=== PATIENT | female | born 1965 | race Caucasian/White ===

== ENCOUNTER 2024-05-22 11:16 | Outpatient (AMB) | payer OTHER, SELFPAY ==
--- NOTE | 2024-05-22 11:30 | MHC.PC.OV ---
Vital Signs 05/22/24 11:48 Height 5 ft 6 in Weight 214 lb BMI 34.5 BP 126/70 Blood Pressure Location Lt brachial Position Sitting Respiration 12 Pulse 68 Pulse Source Pulse Oximeter Pulse Oximetry (%) 95 Oxygen Delivery Method Room Air Intake Visit Reasons: transfer from [facility] Migration Specialist Required: No Accompanied by: Self / Same As Patient Allergies sulfamethoxazole [From Bactrim] Allergy (Severe, Verified 05/22/24 11:33) Hives trimethoprim [From Bactrim] Allergy (Severe, Verified 05/22/24 11:33) Hives Tobacco use date assessed: 05/22/24 Dental Screening Dental Screen Date: 05/22/24 Did you have a dental visit in the last 12 months?: Yes Did you have a dental problem in the last 6 months where you did not have access to dental care?: No Was dental information given to patient?: Patient has dentist HPI HPI Comments History of Present Illness Details 58 year old female with a past medical history of sCHF, CAD s/p PCI 2017, Medtronic AICD/pacemaker, hypertension, hld, tobacco use disorder, emphysema, diverticulitis, chronic neck pain presenting for follow up CV: On coreg, entresto, lipitor, asa. Follows with cardiology, Dr Ramesh. She follows regularly. Denies chest pain, dizziness, increase LE edema. Prediabetes-Last A1C 6.1% Chronic pain: On chronic opioid therapy for neck pain-Percocet 10mg QID qt 11 COPD: On singulair and claritin for allergies, rescue inhaler. LDCT ordered before leaving [facility]. She has this scheduled Colonoscopy UTD Mammo UTD ROS CONSTITUTIONAL: Denies weight loss, fever and chills. HEENT: Denies changes in vision and hearing. RESPIRATORY: Denies SOB and cough. CV: Denies palpitations and CP GI: Denies abdominal pain, nausea, vomiting and diarrhea. : Denies dysuria and urinary frequency. MSK: Denies new myalgia and joint pain. SKIN: Denies rash and pruritus. NEUROLOGICAL: Denies headache PSYCHIATRIC: Denies recent changes in mood. PHYSICAL EXAM: GENERAL: Alert and oriented x 3. NAD EYES: EOMI. Anicteric. HENT: Moist mucous membranes. No scleral icterus. No cervical lymphadenopathy. LUNGS: Clear to auscultation bilaterally. CARDIOVASCULAR: Regular rate and rhythm. No murmur. No JVD. ABDOMEN: Soft, non-tender +bs EXTREMITIES: No edema. Non-tender. SKIN: No rashes or lesions. Warm. NEUROLOGIC: No focal neurological deficits. CN II-XII grossly intact PSYCHIATRIC: Cooperative. Appropriate mood and affect [facility] Medical History (Updated 06/25/24 @ 10:43 by Kecia Fay MD) Defibrillator discharge History of mammogram Osteoarthritis Hypertension Emphysema/COPD COPD (chronic obstructive pulmonary disease) CAD (coronary artery disease) Anxiety Surgical History (Updated 05/22/24 @ 12:17 by Radha Huber CMA) History of tonsillectomy and adenoidectomy History of heart artery stent History of colonoscopy History of endoscopy Family History (Updated 05/22/24 @ 12:18 by Radha Huber CMA) Mother Diabetes Heart disease Myocardial infarct Osteoporosis Skin cancer Father Malignant lymphoma, Hodgkin's type Social History (Updated 05/22/24 @ 11:40 by Radha Huber CMA) Household Members: Spouse and Children Housing: House Are you a primary student career development specialist to a significant other at home: No Do you presently have visiting nurse or other home services: No Alcohol intake: current Alcohol intake frequency: holidays/special occasions only Patient Tobacco Use Status: Current everyday Tobacco user Tobacco use type: Cigarette Cigarette Packs Per Day: 1 Cigarettes Per Day: 15 Years Smoked: 30 e-Cigarette/Vaping Use: Never Used service: No Current occupational status: employed 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 1. Little interest or pleasure in doing things: not at all 2. Feeling down, depressed, or hopeless: not at all 3. Trouble falling or staying asleep, or sleeping too much: several days 4. Feeling tired or having little energy: several days 5. Poor appetite or overeating: not at all 6. Feeling bad about yourself - or that you are a failure or have let yourself or your family down: not at all 7. Trouble concentrating on things, such as reading the newspaper or watching television: not at all 8. Moving or speaking so slowly that other people could have noticed. Or the opposite - being so fidgety or restless that you have been moving around a lot more than usual: not at all 9. Thoughts that you would be better off or of hurting yourself in some way: not at all Total score: 2 Depression Screening Interpretation: Negative Depression Screening Done: Yes 09983 - PHQ-9 Billing: Yes Source: Developed by Drs. Marito Galindo, Alice Cr, Dante Ojeda and colleagues, with an educational jill from [employer] (formerly [employer]). Thrive Questionnaire Date Thrive assessed: 05/19/24 I am a: Patient What is your living situation today?: I have a steady place to live Within the past 12 months, did the food you bought not last and you didn't have the money to get more?: Never true Within the past 12 months, did you worry whether your food would run out before you got money to buy more?: Never true Do you have trouble paying for medicines?: No Do you have trouble getting transportation to medical appointments?: No Do you have trouble paying your heating and electricity bill?: No Do you have trouble taking care of your child, family member or friend?: No Do you have trouble with day-to-day activities such as bathing, preparing meals, shopping, managing finances, etc.?: No Are you currently unemployed and looking for a job?: No Are you interested in more education?: No Please select the resources that you would like help with: None Currently or been in a relationship where the following occur: No concerns reported THRIVE Score: 0 AUDIT C Alcohol Use Questionnaire (AUDIT-C) 1. How often do you have a drink containing alcohol?: Monthly or less 2. How many drinks containing alcohol do you have on a typical day when you are drinking?: 1 or 2 3. How often do you have six or more drinks on one occasion?: Never Total Score: 1 TJ-7 AMB Questionnaire TJ-7 Date TJ - 7 assessed: 05/22/24 Feeling nervous, anxious, or on edge: 0 = Not at all Not being able to stop or control worryin = Several days Worrying too much about different things: 1 = Several days Trouble relaxin = Several days Being so restless that it is hard to sit still: 0 = Not at all Feeling afraid as if something awful might happen: 0 = Not at all Source: Developed by Drs. Marito Galindo, Alice Cr, Dante Ojeda and colleagues, with an educational jill from [employer] (formerly [employer]). TJ-7 Assessment Billing TJ-7 Assessment Tool: TJ-7 Assessment 16232 Physical exam (Primary Care) Vital Signs: Last Vital Signs Pulse 68 05/22/24 11:48 Resp 12 05/22/24 11:48 BP 126/70 05/22/24 11:48 Pulse Ox 95 05/22/24 11:48 Oxygen Delivery Method Room Air 05/22/24 11:48 BMI result Body Mass Index 34.5 Tobacco/Smoking Status: Tobacco use Status Tobacco use date assessed 05/22/24 05/22/24 11:53 Patient Tobacco Use Status Current everyday Tobacco 05/22/24 11:53 Tobacco use type Cigarette 05/22/24 11:53 e-Cigarette/Vaping Use Never Used 05/22/24 11:53 PHQ-9: PHQ-9 Score PHQ-9: Total score 2 06/25/24 10:43 Depression Screening Interpretation: Negative Thrive Assessment: Date of Thrive Assessment Date Thrive assessed 05/19/24 05/22/24 11:31 Currently or been in a relationship where the following occur: No concerns reported Coding Level of Care Code Est Pt Level 4 (04934) Complex EM visit Add On G2211 Diagnoses Chronic obstructive pulmonary disease with acute exacerbation J44.1 COPD type: COPD with acute exacerbation Coronary artery disease involving [place] coronary artery of [place] heart without angina pectoris I25.10 Associated angina: without angina Coronary Disease-Associated Artery/Lesion type: [place] artery [place] vs. transplanted heart: [place] heart Primary hypertension I10 Hypertension type: primary hypertension Other chronic postprocedural pain G89.28 Chronic pain type: other chronic postprocedural pain Additional Codes TJ-7 Assessment Billing - TJ-7 Assessment Tool: TJ-7 Assessment 07493 ([id number])
[2024-05-22 11:48] VITALS: BP 126/70; PULSE 68; RESP 12; O2SAT 95; BMI 34.5
== END 2024-05-22 13:12 | disposition home or self-care (01) ==
PROVIDERS: PCP Internal Medicine; Visit Provider Internal Medicine
DX: J44.1 Chronic obstructive pulmonary disease with (acute) exacerbation (principal); I25.10 Atherosclerotic heart disease of native coronary artery without angina pectoris; I10 Essential (primary) hypertension; G89.28 Other chronic postprocedural pain

== ENCOUNTER → 2024-05-22 11:16 | Outpatient (BNVA) | payer OTHER, SELFPAY | PROVIDERS: PCP Internal Medicine; Visit Provider Internal Medicine | DX: J44.1 Chronic obstructive pulmonary disease with (acute) exacerbation (principal); I25.10 Atherosclerotic heart disease of native coronary artery without angina pectoris; G89.28 Other chronic postprocedural pain; I11.0 Hypertensive heart disease with heart failure; I50.9 Heart failure, unspecified; F17.210 Nicotine dependence, cigarettes, uncomplicated; Z95.0 Presence of cardiac pacemaker | CPT/HCPCS: 96127; 99212 ==

== ENCOUNTER 2024-05-22 13:17 | Outpatient (REF) | payer OTHER, SELFPAY ==
[2024-05-22 15:16] LABS: MANUAL DIFF FLAG NO
[2024-05-22 15:27] LABS: Basophils Percent Auto 0.4 % (0-2); Eosinophils Absolute Auto 0.1 X10*3/uL (0.0-0.4); Eosinophils Percent Auto 1.9 % (0-4); Hematocrit 45.5 % (37.0-47.0); Hemoglobin 15.3 g/dl (12.0-16.0); Imm Gran Abs Auto 0.02 X10*3/uL (0.00-0.03); Imm Gran Pct Auto 0.3 % (0.0-0.4); Lymphocytes Percent Auto 28.9 % (20-40); Mean Corpuscular HGB Conc 33.6 g/dl (31.0-35.0); Mean Corpuscular Hemoglobin 30.9 pg (27.0-33.0); Mean Corpuscular Volume 91.9 fL (80.0-98.0); Mean Platelet Volume 10.5 fL (9.4-12.3); Monocytes Absolute Auto 0.3 X10*3/uL (0.1-1.2); Neutrophils Absolute Auto 4.3 x10*3/uL (2.0-8.3); Neutrophils Percent Auto 63.5 % (45-73); Platelet Count 195 X10*3/uL (160-400); Red Blood Count 4.95 X10*6/uL (4.20-5.50); Red Cell Distribution Width 14.5 % (11.0-16.0); White Blood Count 6.7 X10*3/uL (4.8-10.8)
[2024-05-22 16:16] LABS: Alanine Aminotransferase 16 U/L (0-31); Alkaline Phosphatase 68 U/L (39-117); Anion Gap 13 (12-20); Aspartate Amino Transferase 14 U/L (5-31); Bilirubin Total 0.6 mg/dL (0.0-1.0); Blood Urea Nitrogen 15 mg/dL (9-16); Calcium 9.2 mg/dL (8.4-10.2); Carbon Dioxide 25 mmol/L (22-29); Chloride 107 mmol/L (96-108); Cholesterol 188 mg/dL (<200); Estimated Glomerular Filt Rate > 60; Glucose Random 124 mg/dL (60-115); HDL Cholesterol 51 mg/dL (>40); LDL Cholesterol Calculated 111 mg/dL (<100); Potassium 3.9 mmol/L (3.3-5.1); Sodium 141 mmol/L (135-145); Total Protein 6.8 g/dL (6.5-8.0); Triglycerides 130 mg/dL (<150)
[2024-05-22 16:18] LABS: Estimated Average Glucose 120 mg/dL; Hemoglobin A1C 151.8061 umol/L; Hemoglobin A1c % 5.8 % (<6.0)
[2024-05-22 16:26] LABS: TSH reflex Free T4 0.69 uIU/mL (0.32-4.0)
== END 2024-05-22 13:18 | disposition home or self-care (01) ==
LOC: HO.WFDLDS 13:17
PROVIDERS: Visit Provider Internal Medicine
DX: J44.9 Chronic obstructive pulmonary disease, unspecified (principal); I10 Essential (primary) hypertension; I25.10 Atherosclerotic heart disease of native coronary artery without angina pectoris; Z13.0 Encounter for screening for diseases of the blood and blood-forming organs and certain disorders involving the immune mechanism; Z13.1 Encounter for screening for diabetes mellitus
CPT/HCPCS: 36415; 80053; 80061; 83036; 84443; 85025

== ENCOUNTER 2024-08-14 09:04 | Outpatient (AMB) | payer OTHER, SELFPAY ==
--- OUTSIDE RECORDS SUMMARY | 2024-08-14 09:11 | XMS_ITS | Continuity of Care Document ---
Author Organization [facility] Address [address] [place] [id number]- Care Team Providers Care Clinical Laboratory Technician Name Role Phone Sumeet DELGADO, Kecia Cash Primary Care Physician [phone] [place] [facility] [place]): [place]/24 [facility] [address] [place] [id number] Encounter Type: Triage Allergies, Adverse Reactions, Alerts Substance Criticality Severity Reaction Reaction Severity Status Bactrim hives Active Pollen Active Immunizations Given and Recorded Vaccine Date Status Refusal Reason influenza virus vaccine, inactivated 08/07/23 Ric rded influenza virus vaccine, inactivated 07/31/22 Ric rded influenza virus vaccine, inactivated 05/31/20 Ric rded influenza virus vaccine, inactivated 06/27/19 Ric rded influenza virus vaccine, inactivated 06/28/18 Ric rded influenza virus vaccine, inactivated 09/14/13 Ric rded SARS-CoV-2 (COVID-19) mRNA BNT-162b2 vac 12/11/20 Given SARS-CoV-2 (COVID-19) mRNA BNT-162b2 vac 11/20/20 Given tetanus/diphtheria/pertussis, acel(Tdap) 09/14/13 Recorded Problem List Condition Confirmation Course Effective Dates Status H ealth Status Informant Anxiety Confirmed Active CAD - Coronary artery disease Confirmed Active Tendinitis, calcific, shoulder Confirmed Active Chronic pain Confirmed Active Controlled substance agreement signed Confirmed Active Hypertension Confirmed Active Obese class I Confirmed Active Osteoarthritis Confirmed Active Prediabetes Confirmed Active COPD with emphysema Confirmed Active Right cervical radiculopathy Confirmed Active Smoker Confirmed Active Social History Social History Type Response Smoking Status 10 or more cigarette s (1/2 pack or more)/day in last 30 days; Interested in cessation: Yes; Type: Cigarettes; Tobacco use times per day: 1/2 -1 pack a day; Started at age: 16; entered on: 06/17/23 Sex Sex Representation Female (finding) Patient Care team information Care Team Personnel Name: Chapis Montiel RN Position: [facility] SN RN Member Role: Primary Care Nurse Name: Stephenie Bowles MA Position: [facility] Office Staff Member Role: Lifetime Consulting Physician Name: Gina Araya Position: [facility] Outreach Member Role: Lifetime Consulting Physician Name: Kecia Fay MD Position: Reference Physician Member Role: PCP Address: [address] [place] [address] Telecom: Care Team Related Persons Name: IMMANUEL LIU Name: MARKELL LIU Name: ALEX CHOI Name: [facility] Insurance Providers Guarantor name: COLIN DUENAS Health Plan Information #: 1 Payer: [facility] Member Number: NA Policy Number: NA Group Number: [id number]
--- NOTE | 2024-08-14 09:26 | MHC.PC.OV ---
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 Follows with cardiology, Dr Ramesh. She follows regularly. Denies chest pain, dizziness, increase LE edema. Prediabetes-Last A1C 5.8% Chronic pain: On chronic opioid therapy for neck pain-Percocet 10mg QID qt 11 COPD: On singulair and claritin for allergies, rescue inhaler. LDCT UTD. Increased cough and sinus congestion Colonoscopy UTD Mammo UTD ROS see HPI PHYSICAL EXAM: GENERAL: Alert and oriented x 3. NAD EYES: EOMI. Anicteric. HENT: Moist mucous membranes. No scleral icterus. No cervical lymphadenopathy. LUNGS: Clear to auscultation bilaterally. CARDIOVASCULAR: Regular rate and rhythm. No murmur. No JVD. ABDOMEN: Soft, non-tender +bs EXTREMITIES: No edema. Non-tender. SKIN: No rashes or lesions. Warm. NEUROLOGIC: No focal neurological deficits. CN II-XII grossly intact PSYCHIATRIC: Cooperative. Appropriate mood and affect [facility] Medical History (Updated 06/25/24 @ 10:43 by Kecia Fay MD) Defibrillator discharge History of mammogram Osteoarthritis Hypertension Emphysema/COPD COPD (chronic obstructive pulmonary disease) CAD (coronary artery disease) Anxiety Surgical History History of tonsillectomy and adenoidectomy History of heart artery stent History of colonoscopy History of endoscopy Family History Mother Diabetes Heart disease Myocardial infarct Osteoporosis Skin cancer Father Malignant lymphoma, Hodgkin's type Social History (Updated 08/14/24 @ 09:33 by Gina Valentine CMA) Household Members: Spouse and Children Housing: House Are you a primary home care and home health aides teacher to a significant other at home: No Do you presently have visiting nurse or other home services: No 75 years or older and lives alone: No Alcohol intake: current Alcohol intake frequency: holidays/special occasions only Patient Tobacco Use Status: Current everyday Tobacco user Tobacco use type: Cigarette Cigarette Packs Per Day: 1 Cigarettes Per Day: 15 Years Smoked: 30 e-Cigarette/Vaping Use: Never Used service: No Current occupational status: employed 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 [employer] Current occupational exposures/hazards: No Cognitive needs: No Hearing needs: No Vision needs: No Questionnaire Thrive Questionnaire Date Thrive assessed: 08/14/24 I am a: Patient What is your living situation today?: I have a steady place to live Within the past 12 months, did the food you bought not last and you didn't have the money to get more?: Never true Within the past 12 months, did you worry whether your food would run out before you got money to buy more?: Never true Do you have trouble paying for medicines?: No Do you have trouble getting transportation to medical appointments?: No Do you have trouble paying your heating and electricity bill?: No Do you have trouble taking care of your child, family member or friend?: No Do you have trouble with day-to-day activities such as bathing, preparing meals, shopping, managing finances, etc.?: No Are you currently unemployed and looking for a job?: No Are you interested in more education?: No Please select the resources that you would like help with: None Currently or been in a relationship where the following occur: No concerns reported THRIVE Score: 0 TJ-7 AMB Questionnaire TJ-7 Date TJ - 7 assessed: 05/22/24 Becoming easily annoyed or irritable: 0 = Not at all Source: Developed by Drs. Marito Galinod, Alice Cr, Dante Ojeda and colleagues, with an educational jill from [employer]. Physical exam (Primary Care) Vital Signs: Last Vital Signs Pulse 64 08/14/24 09:30 BP 114/78 08/14/24 09:30 Pulse Ox 95 08/14/24 09:30 Oxygen Delivery Method Room Air 08/14/24 09:30 BMI result Body Mass Index 35.0 Tobacco/Smoking Status: Tobacco use Status Tobacco use date assessed 05/22/24 08/14/24 09:33 Patient Tobacco Use Status Current everyday Tobacco 08/14/24 09:33 Tobacco use type Cigarette 08/14/24 09:33 e-Cigarette/Vaping Use Never Used 08/14/24 09:33 Thrive Assessment: Date of Thrive Assessment Date Thrive assessed 08/14/24 08/14/24 09:33 Currently or been in a relationship where the following occur: No concerns reported Coding Level of Care Code Est Pt Level 4 (19003) Diagnoses Other chronic postprocedural pain G89.28 Chronic pain type: other chronic postprocedural pain Chronic obstructive pulmonary disease with acute exacerbation J44.1 COPD type: COPD with acute exacerbation Coronary artery disease involving [place] coronary artery of [place] heart without angina pectoris I25.10 Associated angina: without angina Coronary Disease-Associated Artery/Lesion type: [place] artery [place] vs. transplanted heart: [place] heart Assessment & Plan Assessment & Plan (1) Chronic pain: Code(s): G89.29 - Other chronic pain Category: Medical Qualifiers: Chronic pain type: other chronic postprocedural pain Qualified Code(s): G89.28 - Other chronic postprocedural pain Plan: stable on current regimen (2) COPD (chronic obstructive pulmonary disease): Code(s): J44.9 - Chronic obstructive pulmonary disease, unspecified Category: Medical Qualifiers: COPD type: COPD with acute exacerbation Qualified Code(s): J44.1 - Chronic obstructive pulmonary disease with (acute) exacerbation Plan: with exacerbation. azithromycin sent Call if no improvement or worsening symptoms (3) CAD (coronary artery disease): Code(s): I25.10 - Atherosclerotic heart disease of [place] coronary artery without angina pectoris Category: Medical Qualifiers: Associated angina: without angina Coronary Disease-Associated Artery/Lesion type: [place] artery [place] vs. transplanted heart: [place] heart Qualified Code(s): I25.10 - Atherosclerotic heart disease of [place] coronary artery without angina pectoris Plan: stable. continue cardiology follow up Medications: New azithromycin 500 mg PO DAILY 5 tabs 0RF Refilled oxycodone-acetaminophen 10-325 mg Partial Fill upon patient request. 1 tab PO QID PRN 112 tabs 0RF pain oxycodone-acetaminophen 10-325 mg Partial Fill upon patient request. 1 tab PO QID PRN 112 tabs 0RF pain
[2024-08-14 09:30] VITALS: BP 114/78; PULSE 64; O2SAT 95; BMI 35.0
== END 2024-08-14 10:00 | disposition home or self-care (01) ==
PROVIDERS: PCP Internal Medicine; Visit Provider Internal Medicine
DX: G89.28 Other chronic postprocedural pain (principal); J44.1 Chronic obstructive pulmonary disease with (acute) exacerbation; I25.10 Atherosclerotic heart disease of native coronary artery without angina pectoris

== ENCOUNTER → 2024-08-14 09:04 | Outpatient (BNVA) | payer OTHER, SELFPAY | PROVIDERS: PCP Internal Medicine; Visit Provider Internal Medicine | DX: G89.28 Other chronic postprocedural pain (principal); J44.1 Chronic obstructive pulmonary disease with (acute) exacerbation; I25.10 Atherosclerotic heart disease of native coronary artery without angina pectoris; Z79.891 Long term (current) use of opiate analgesic | CPT/HCPCS: 99212 ==

== ENCOUNTER 2024-11-03 08:17 | Outpatient (AMB) | payer OTHER, SELFPAY ==
--- NOTE | 2024-11-03 08:29 | MHC.PC.OV ---
Vital Signs 11/03/24 08:36 Height 5 ft 6 in Weight 214 lb 4 oz BMI 34.6 BP 114/80 Blood Pressure Location Rt brachial Position Sitting Respiration 16 Pulse 94 Pulse Source Pulse Oximeter Temp 97.8 F Temp Source Oral Pulse Oximetry (%) 98 Oxygen Delivery Method Room Air Intake Visit Reasons: diverticulitis Intake Note: Diverticulitis flare. Stomach gurgling, pain. 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 Soon after she started getting symptoms consistent with diverticulitis-LLQ pain, looser. Sent her augmentin last night which she is picking up today. She denies fevers, blood in the stool. CV: On coreg, entresto, lipitor, asa. Follows with cardiology, Dr Ramesh. She follows regularly. Denies chest pain, dizziness, increase LE edema. Prediabetes-Last A1C 5.8% Chronic pain: On chronic opioid therapy for neck pain-Percocet 10mg QID qt 11 COPD: On singulair and claritin for allergies, rescue inhaler. LDCT UTD. Increased cough and sinus congestion Colonoscopy UTD Mammo UTD ROS see HPI PHYSICAL EXAM: GENERAL: Alert and oriented x 3. NAD EYES: EOMI. Anicteric. HENT: Moist mucous membranes. No scleral icterus. No cervical lymphadenopathy. LUNGS: Clear to auscultation bilaterally. CARDIOVASCULAR: Regular rate and rhythm. No murmur. No JVD. ABDOMEN: Soft, non-tender +bs EXTREMITIES: No edema. Non-tender. SKIN: No rashes or lesions. Warm. NEUROLOGIC: No focal neurological deficits. CN II-XII grossly intact PSYCHIATRIC: Cooperative. Appropriate mood and affect [facility] Medical History Defibrillator discharge History of mammogram Osteoarthritis Hypertension Emphysema/COPD COPD (chronic obstructive pulmonary disease) CAD (coronary artery disease) Anxiety Surgical History History of tonsillectomy and adenoidectomy History of heart artery stent History of colonoscopy History of endoscopy Family History Mother Diabetes Heart disease Myocardial infarct Osteoporosis Skin cancer Father Malignant lymphoma, Hodgkin's type Social History Household Members: Spouse and Children Housing: House Are you a primary child care teacher to a significant other at home: No Do you presently have visiting nurse or other home services: No 75 years or older and lives alone: No Alcohol intake: current Alcohol intake frequency: holidays/special occasions only Patient Tobacco Use Status: Current everyday Tobacco user Tobacco use type: Cigarette Cigarette Packs Per Day: 1 Cigarettes Per Day: 15 Years Smoked: 30 e-Cigarette/Vaping Use: Never Used service: No Current occupational status: employed 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 1. Little interest or pleasure in doing things: not at all 2. Feeling down, depressed, or hopeless: not at all 3. Trouble falling or staying asleep, or sleeping too much: several days 4. Feeling tired or having little energy: several days 5. Poor appetite or overeating: several days 6. Feeling bad about yourself - or that you are a failure or have let yourself or your family down: not at all 7. Trouble concentrating on things, such as reading the newspaper or watching television: not at all 8. Moving or speaking so slowly that other people could have noticed. Or the opposite - being so fidgety or restless that you have been moving around a lot more than usual: not at all 9. Thoughts that you would be better off or of hurting yourself in some way: not at all Total score: 3 Depression Screening Interpretation: Positive Depression Screening Done: Yes 19162 - PHQ-9 Billing: Yes Source: Developed by Drs. Marito Galindo, Alice Cr, Dante Ojeda and colleagues, with an educational jill from [employer]. Thrive Questionnaire Date Thrive assessed: 11/02/24 I am a: Patient What is your living situation today?: I have a steady place to live Within the past 12 months, did the food you bought not last and you didn't have the money to get more?: Never true Within the past 12 months, did you worry whether your food would run out before you got money to buy more?: Never true Do you have trouble paying for medicines?: No Do you have trouble getting transportation to medical appointments?: No Do you have trouble paying your heating and electricity bill?: No Do you have trouble taking care of your child, family member or friend?: No Do you have trouble with day-to-day activities such as bathing, preparing meals, shopping, managing finances, etc.?: No Are you currently unemployed and looking for a job?: No Are you interested in more education?: No Please select the resources that you would like help with: None Currently or been in a relationship where the following occur: No concerns reported THRIVE Score: 0 AUDIT C Alcohol Use Questionnaire (AUDIT-C) 1. How often do you have a drink containing alcohol?: Monthly or less 2. How many drinks containing alcohol do you have on a typical day when you are drinking?: 1 or 2 3. How often do you have six or more drinks on one occasion?: Never Total Score: 1 TJ-7 AMB Questionnaire TJ-7 Date TJ - 7 assessed: 11/03/24 Feeling nervous, anxious, or on edge: 1 = Several days Not being able to stop or control worryin = Several days Worrying too much about different things: 1 = Several days Trouble relaxin = Several days Being so restless that it is hard to sit still: 0 = Not at all Becoming easily annoyed or irritable: 1 = Several days Feeling afraid as if something awful might happen: 0 = Not at all Total TJ-7 score (0-4 normal; 5-9 mild; 10-14 moderate; 15-21 severe): 5 Source: Developed by Drs. Marito Galindo, Alice Cr, Dante Ojeda and colleagues, with an educational jill from [employer]. TJ-7 Assessment Billing TJ-7 Assessment Tool: TJ-7 Assessment 03564 Physical exam (Primary Care) Vital Signs: Last Vital Signs Temp 97.8 F 11/03/24 08:36 Pulse 94 11/03/24 08:36 Resp 16 11/03/24 08:36 BP 114/80 11/03/24 08:36 Pulse Ox 98 11/03/24 08:36 Oxygen Delivery Method Room Air 11/03/24 08:36 BMI result Body Mass Index 34.6 Tobacco/Smoking Status: Tobacco use Status Tobacco use date assessed 11/03/24 11/03/24 08:30 Patient Tobacco Use Status Current everyday Tobacco 11/03/24 08:30 Tobacco use type Cigarette 11/03/24 08:30 e-Cigarette/Vaping Use Never Used 11/03/24 08:30 PHQ-9: PHQ-9 Score PHQ-9: Total score 3 11/03/24 08:30 Depression Screening Interpretation: Positive Thrive Assessment: Date of Thrive Assessment Date Thrive assessed 11/02/24 11/03/24 08:30 Currently or been in a relationship where the following occur: No concerns reported Coding Level of Care Code Est Pt Level 4 (30832) Diagnoses Diverticulitis K57.92 Additional Codes TJ-7 Assessment Billing - TJ-7 Assessment Tool: TJ-7 Assessment 34461 ([id number]) PHQ-9 - 62085 - PHQ-9 Billing: Yes ([id number]) Assessment & Plan Assessment & Plan (1) Diverticulitis: Code(s): K57.92 - Diverticulitis of intestine, part unspecified, without perforation or abscess without bleeding Category: Medical Plan: Start augmentin x 10 days Call, go to ER for persistent or worsening symptoms, acute worsening of abdominal pain, blood in the stools or fever Orders: Orders Lyme IgG/IgM w/reflex to WB Today G89.28 - Other chronic postprocedural pain, M25.50 - Pain in unspecified joint Rheumatoid Factor Today G89.28 - Other chronic postprocedural pain, M25.50 - Pain in unspecified joint Erythrocyte Sedimentation Rate Today G89.28 - Other chronic postprocedural pain, M25.50 - Pain in unspecified joint Cyclic Citrullinated Peptide Today G89.28 - Other chronic postprocedural pain, M25.50 - Pain in unspecified joint Medications: Refilled oxycodone-acetaminophen 10-325 mg Partial Fill upon patient request. 1 tab PO QID PRN 112 tabs 0RF pain
[2024-11-03 08:36] VITALS: BP 114/80; PULSE 94; RESP 16; TEMP 36.6; O2SAT 98; BMI 34.6
--- OUTSIDE RECORDS SUMMARY | 2024-11-03 08:40 | XMS_ITS | Continuity of Care Document ---
Author Organization [facility] Address [address] [place] [id number]- Care Team Providers Care Transplant Registered Nurse Name Role Phone Sumeet DELGADO, Kecia Cash Primary Care Physician Encounter [facility] [place] Date(s): 06/29/24 - 10/27/24 [facility] [address] [place] [id number]- Attending Physician: Usman Lehman MD Admitting Physician: Usman Lehman MD Referring Physician: Kecia Fay MD Encounter Type: Pre-OutPatient One Time Allergies, Adverse Reactions, Alerts Substance Criticality Severity [...] Team Personnel Name: Chapis Montiel RN Position: [facility] RN Member Role: Primary Care Nurse Name: Stephenie Bowles MA Position: [facility] ANTOINE Office Staff Member Role: Lifetime Consulting Physician Name: Gina Araya Position: [facility] Outreach Member Role: Lifetime Consulting Physician Name: Kecia Fay MD Position: Reference Physician Member Role: PCP Address: [address] [place] [id number] Telecom: Care Team Related Persons Name: IMMANUEL LIU Name: MARKELL LIU Name: ALEX CHOI Name: MADISON CHOI Insurance Providers Guarantor name: COLIN DUENAS Health Plan Information #: 1 Payer: [facility] [employer] [employer]/ONE CARE Member Number: [id number] Policy Number: NA Group Number: [facility] Health Plan Information #: 2 Payer: [facility]/ONE CARE Member Number: [id number] Policy Number: NA Group Number: NA
== END 2024-11-03 09:07 | disposition home or self-care (01) ==
PROVIDERS: PCP Internal Medicine; Visit Provider Internal Medicine
DX: K57.92 Diverticulitis of intestine, part unspecified, without perforation or abscess without bleeding (principal)

== ENCOUNTER → 2024-11-03 08:17 | Outpatient (BNVA) | payer OTHER, SELFPAY | PROVIDERS: PCP Internal Medicine; Visit Provider Internal Medicine | DX: I25.10 Atherosclerotic heart disease of native coronary artery without angina pectoris (principal); I10 Essential (primary) hypertension; J43.9 Emphysema, unspecified; M54.2 Cervicalgia; G89.29 Other chronic pain; M25.50 Pain in unspecified joint; F17.210 Nicotine dependence, cigarettes, uncomplicated; Z95.0 Presence of cardiac pacemaker; Z87.19 Personal history of other diseases of the digestive system | CPT/HCPCS: 36415; 85652; 86200; 86618; 96127; 99212 ==

== ENCOUNTER 2024-11-03 09:23 | Outpatient (REF) | payer OTHER, SELFPAY ==
[2024-11-03 12:23] LABS: Erythrocyte Sedimentation Rate 9 MM/HR (0-20)
[2024-11-05 14:38] LABS: Cyclic Citrullinated Peptide <16 UNITS
[2024-11-06 23:19] LABS: Lyme Abs Screen <0.90 index
== END 2024-11-03 09:24 | disposition home or self-care (01) ==
LOC: HO.WFDLDS 09:23
PROVIDERS: Visit Provider Internal Medicine
DX: Z13.89 Encounter for screening for other disorder (principal)
CPT/HCPCS: 36415; 85652; 86200; 86617; 86618

== ENCOUNTER 2024-11-14 16:26 | Outpatient (AMB) | payer OTHER, SELFPAY ==
--- NOTE | 2024-11-14 16:16 | MHC.PC.OV ---
Intake Visit Reasons: phone f/up meds Intake Note: Follow up for diverticulitis. Completed antibiotics yesterday morning. Record Tester Required: No Allergies sulfamethoxazole [From Bactrim] Allergy (Severe, Verified 11/14/24 16:16) Hives trimethoprim [From Bactrim] Allergy (Severe, Verified 11/14/24 16:16) Hives Tobacco use date assessed: 11/03/24 Dental Screening Dental Screen Date: 05/22/24 HPI HPI Comments History of Present Illness Details 58 year old female with a past medical history of sCHF, CAD s/p PCI 2017, Medtronic AICD/pacemaker, hypertension, hld, tobacco use disorder, emphysema, diverticulitis, chronic neck pain presenting for follow up Patient seen last week for diverticular symptoms. Still having some residual symptoms, much improved. She started getting symptoms consistent with diverticulitis-LLQ pain, looser. Sent her augmentin last night which she is picking up today. She denies fevers, blood in the stool. CV: On coreg, entresto, lipitor, ASA. Follows with cardiology, Dr Ramesh. She follows regularly. Denies chest pain, dizziness, increase LE edema. Prediabetes-Last A1C 5.8% Chronic pain: On chronic opioid therapy for neck pain-Percocet 10mg QID qt 11 COPD: On singulair and claritin for allergies, rescue inhaler. LDCT UTD. Increased cough and sinus congestion Colonoscopy UTD Mammo UTD ROS see HPI PHYSICAL EXAM: Telehealth [facility] Medical History Defibrillator discharge History of mammogram Osteoarthritis Hypertension Emphysema/COPD COPD (chronic obstructive pulmonary disease) CAD (coronary artery disease) Anxiety Surgical History History of tonsillectomy and adenoidectomy History of heart artery stent History of colonoscopy History of endoscopy Family History Mother Diabetes Heart disease Myocardial infarct Osteoporosis Skin cancer Father Malignant lymphoma, Hodgkin's type Social History Household Members: Spouse and Children Housing: House Are you a primary care manager to a significant other at home: No Do you presently have visiting nurse or other home services: No 75 years or older and lives alone: No Alcohol intake: current Alcohol intake frequency: holidays/special occasions only Patient Tobacco Use Status: Current everyday Tobacco user Tobacco use type: Cigarette Cigarette Packs Per Day: 1 Cigarettes Per Day: 15 Years Smoked: 30 e-Cigarette/Vaping Use: Never Used service: No Current occupational status: employed 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 Current occupational exposures/hazards: No Cognitive needs: No Hearing needs: No Vision needs: No Questionnaire Thrive Questionnaire Date Thrive assessed: 11/02/24 I am a: Patient What is your living situation today?: I have a steady place to live Within the past 12 months, did the food you bought not last and you didn't have the money to get more?: Never true Within the past 12 months, did you worry whether your food would run out before you got money to buy more?: Never true Do you have trouble paying for medicines?: No Do you have trouble getting transportation to medical appointments?: No Do you have trouble paying your heating and electricity bill?: No Do you have trouble taking care of your child, family member or friend?: No Do you have trouble with day-to-day activities such as bathing, preparing meals, shopping, managing finances, etc.?: No Are you currently unemployed and looking for a job?: No Are you interested in more education?: No Please select the resources that you would like help with: None Currently or been in a relationship where the following occur: No concerns reported THRIVE Score: 0 TJ-7 AMB Questionnaire TJ-7 Date TJ - 7 assessed: 11/03/24 Source: Developed by Drs. Marito Galindo, Alice Cr, Dante Ojeda and colleagues, with an educational jill from [employer]. Physical exam (Primary Care) Tobacco/Smoking Status: Tobacco use Status Tobacco use date assessed 11/03/24 11/14/24 16:19 Patient Tobacco Use Status Current everyday Tobacco 11/14/24 16:28 Tobacco use type Cigarette 11/14/24 16:28 e-Cigarette/Vaping Use Never Used 11/14/24 16:28 Thrive Assessment: Date of Thrive Assessment Date Thrive assessed 11/02/24 11/14/24 16:19 Currently or been in a relationship where the following occur: No concerns reported Telehealth Telehealth Telehealth Platform: Telephone Location of provider rendering services: practice address Location of patient: address on file Patient Identification confirmed using: Name, : Yes Telehealth method: voice only Patient verbally consented to treatment: Yes Patient verbally consented to billing insurance company: Yes Patient informed of any privacy concerns related to visit: Yes Minutes spent on Phone/Video with Pt.: 22 Coding Level of Care Code Tele Est Pt Level 3 (41444) Diagnoses Diverticulitis K57.92 Chronic obstructive pulmonary disease with acute exacerbation J44.1 COPD type: COPD with acute exacerbation Coronary artery disease involving [place] coronary artery of [place] heart without angina pectoris I25.10 Associated angina: without angina Coronary Disease-Associated Artery/Lesion type: [place] artery [place] vs. transplanted heart: [place] heart Assessment & Plan Assessment & Plan (1) Diverticulitis: Code(s): K57.92 - Diverticulitis of intestine, part unspecified, without perforation or abscess without bleeding Category: Medical (2) COPD (chronic obstructive pulmonary disease): Code(s): J44.9 - Chronic obstructive pulmonary disease, unspecified Category: Medical Qualifiers: COPD type: COPD with acute exacerbation Qualified Code(s): J44.1 - Chronic obstructive pulmonary disease with (acute) exacerbation (3) CAD (coronary artery disease): Code(s): I25.10 - Atherosclerotic heart disease of [place] coronary artery without angina pectoris Category: Medical Qualifiers: Associated angina: without angina Coronary Disease-Associated Artery/Lesion type: [place] artery [place] vs. transplanted heart: [place] heart Qualified Code(s): I25.10 - Atherosclerotic heart disease of [place] coronary artery without angina pectoris Plan Prolong augmentin course For Medications: Refilled amoxicillin-pot clavulanate 875-125 mg 1 tab PO BID 20 tabs 0RF
== END 2024-11-14 17:05 | disposition home or self-care (01) ==
LOC: HO.HMCFM 16:26
PROVIDERS: PCP Internal Medicine; Visit Provider Internal Medicine
DX: K57.92 Diverticulitis of intestine, part unspecified, without perforation or abscess without bleeding (principal); J44.1 Chronic obstructive pulmonary disease with (acute) exacerbation; I25.10 Atherosclerotic heart disease of native coronary artery without angina pectoris

== ENCOUNTER 2024-12-12 08:26 | Outpatient (AMB) | payer OTHER, SELFPAY ==
[2024-12-12 08:39] VITALS: BP 124/84; PULSE 70; RESP 14; O2SAT 95; BMI 34.4
--- NOTE | 2024-12-12 08:39 | A.OFFPC_ITS ---
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: No Allergies sulfamethoxazole [From Bactrim] Allergy (Severe, Verified 11/14/24 16:16) Hives trimethoprim [From Bactrim] Allergy (Severe, Verified 11/14/24 16:16) Hives Medication List - Last Reconciled 12/12/24 by Kecia Fay MD acetaminophen 650 mg PO Q6H PRN albuterol sulfate 90 mcg/actuation 2 inhalations inhalation Q4-6H PRN aspirin 81 mg PO DAILY atorvastatin 40 mg PO BEDTIME carvedilol 25 mg PO BID diclofenac sodium 75 mg PO BID famotidine 40 mg PO BEDTIME loratadine 10 mg PO DAILY montelukast 10 mg PO DAILY oxycodone-acetaminophen 10-325 mg 1 tab PO QID PRN sacubitril-valsartan 97-103 mg (Entresto) 1 tab PO BID Tobacco use date assessed: 12/12/24 Dental Screening Dental Screen Date: 05/22/24 HPI HPI Comments History of Present Illness Details 58 year old female with a past medical h istory of sCHF, CAD s/p PCI 2017, Medtronic AICD/pacemaker, hypertension, hld, tobacco use disorder, emphysema, diverticulitis, chronic neck pain presenting for annual exam Recent bout of diverticulitis has resolved. CV: On coreg, entresto, lipitor, ASA. Follows with cardiology, Dr Ramesh. She follows regularly. Denies chest pain, dizziness, increase LE edema. Prediabetes-A1C ordered today Chronic pain: On chronic opioid therapy for neck pain-Percocet 10mg QID qt 11 COPD: On singulair and claritin for allergies, rescue inhaler. LDCT UTD. Prevously on depo shots. Feels that she has been having menopausal symptoms after stopping. increased joint pain, some fatigue. Colonoscopy UTD-2021-5 years Mammo 12/10/2021 ROS see HPI PHYSICAL EXAM: GENERAL: Alert and oriented x 3. NAD EYES: EOMI. Anicteric. HENT: Moist mucous membranes. No scleral icterus. No cervical lymphadenopathy. LUNGS: Clear to auscultation bilaterally. CARDIOVASCULAR: Regular rate and rhythm. No murmur. No JVD. ABDOMEN: Soft, non-tender +bs EXTREMITIES: No edema. Non-tender. SKIN: No rashes or lesions. Warm. NEUROLOGIC: No focal neurological deficits. CN II-XII grossly intact PSYCHIATRIC: Cooperative. Appropriate mood and affect [facility] Medical History Defibrillator discharge History of mammogram Osteoarthritis Hypertension Emphysema/COPD COPD (chronic obstructive pulmonary disease) CAD (coronary artery disease) Anxiety Surgical History History of tonsillectomy and adenoidectomy History of heart artery stent History of colonoscopy History of endoscopy Family History Mother Diabetes Heart disease Myocardial infarct Osteoporosis Skin cancer Father Malignant lymphoma, Hodgkin's type Social History Household Members: Spouse and Children Housing: House Are you a primary career services coordinator to a significant other at home: No Do you presently have visiting nurse or other home services: No Alcohol intake: current Alcohol intake frequency: holidays/special occasions only Patient Tobacco Use Status: Current everyday Tobacco user Tobacco use type: Cigarette Cigarette Packs Per Day: 0.5 Cigarettes Per Day: 15 Years Smoked: 30 e-Cigarette/Vaping Use: Never Used service: No Current occupational status: employed 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 Current occupational exposures/hazards: No Cognitive needs: No Hearing needs: No Vision needs: No Questionnaire Thrive Questionnaire Date Thrive assessed: 11/02/24 I am a: Patient What is your living situation today?: I have a steady place to live Within the past 12 months, did the food you bought not last and you didn't have the money to get more?: Never true Within the past 12 months, did you worry whether your food would run out before you got money to buy more?: Never true Do you have trouble paying for medicines?: No Do you have trouble getting transportation to medical appointments?: No Do you have trouble paying your heating and electricity bill?: No Do you have trouble taking care of your child, family member or friend?: No Do you have trouble with day-to-day activities such as bathing, preparing meals, shopping, managing finances, etc.?: No Are you currently unemployed and looking for a job?: No Are you interested in more education?: No Please select the resources that you would like help with: None Currently or been in a relationship where the following occur: No concerns reported THRIVE Score: 0 AUDIT C Alcohol Use Questionnaire (AUDIT-C) 1. How often do you have a drink containing alcohol?: Monthly or less 2. How many drinks containing alcohol do you have on a typical day when you are drinking?: 1 or 2 3. How often do you have six or more drinks on one occasion?: Never Total Score: 1 TJ-7 AMB Questionnaire TJ-7 Date TJ - 7 assessed: 11/03/24 Source: Developed by Drs. Marito Galindo, Alice Cr, Dante Ojeda and colleagues, with an educational jill from [employer]. Physical exam (Primary Care) Vital Signs: Last Vital Signs Pulse 70 12/12/24 08:39 Resp 14 12/12/24 08:39 BP 124/84 12/12/24 08:39 Pulse Ox 95 12/12/24 08:39 Oxygen Delivery Method Room Air 12/12/24 08:39 BMI result Body Mass Index 34.4 Tobacco/Smoking Status: Tobacco use Status Tobacco use date assessed 12/12/24 12/12/24 08:45 Patient Tobacco Use Status Current everyday Tobacco 12/12/24 08:40 Tobacco use type Cigarette 12/12/24 08:40 e-Cigarette/Vaping Use Never Used 12/12/24 08:40 Thrive Assessment: Date of Thrive Assessment Date Thrive assessed 11/02/24 12/12/24 08:40 Currently or been in a relationship where the following occur: No concerns reported Coding Level of Care Code Est Pt Prev Care 40-64y(45947) Diagnoses Physical exam Z00.00 Coronary artery disease involving [place] coronary artery of [place] heart without angina pectoris I25.10 Coronary Disease-Associated Artery/Lesion type: [place] artery [place] vs. transplanted heart: [place] heart Associated angina: without angina Chronic obstructive pulmonary disease with acute exacerbation J44.1 COPD type: COPD with acute exacerbation Primary hypertension I10 Hypertension type: primary hypertension Assessment & Plan Assessment & Plan (1) Physical exam: Code(s): Z00.00 - Encounter for general adult medical examination without abnormal findings Category: Medical (2) CAD (coronary artery disease): Code(s): I25.10 - Atherosclerotic heart disease of [place] coronary artery without angina pectoris Category: Medical Qualifiers: Coronary Disease-Associated Artery/Lesion type: [place] artery [place] vs. transplanted heart: [place] heart Associated angina: without angina Qualified Code(s): I25.10 - Atherosclerotic heart disease of [place] coronary artery without angina pectoris (3) COPD (chronic obstructive pulmonary disease): Code(s): J44.9 - Chronic obstructive pulmonary disease, unspecified Category: Medical Qualifiers: COPD type: COPD with acute exacerbation Qualified Code(s): J44.1 - Chr onic obstructive pulmonary disease with (acute) exacerbation (4) Hypertension: Code(s): I10 - Essential (primary) hypertension Category: Medical Qualifiers: Hypertension type: primary hypertension Qualified Code(s): I10 - Essential (primary) hypertension Plan 58 year old female for physical exam Interval history reviewed Chronic medical conditions stable Decline gynecology referral Mammogram order given to patient urged to book. Discussed overdue Orders: Orders Complete Blood Count Auto Diff Today I10 - Essential (primary) hypertension, I25.10 - Atherosclerotic heart disease of [place] coronary artery without angina pectoris, J44.1 - Chronic obstructive pulmonary disease with (acute) exacerbation, Z00.00 - Encounter for general adult medical examination without abnormal findings Lipid Panel Today I10 - Essential (primary) hypertension, I25.10 - Atherosclerotic heart disease of [place] coronary artery without angina pectoris, J44.1 - Chronic obstructive pulmonary disease with (acute) exacerbation, Z00.00 - Encounter for general adult medical examination without abnormal findings Hemoglobin A1c Today I10 - Essential (primary) hypertension, I25.10 - Atherosclerotic heart disease of [place] coronary artery without angina pectoris, J44.1 - Chronic obstructive pulmonary disease with (acute) exacerbation, Z00.00 - Encounter for general adult medical examination without abnormal findings Comprehensive Met. Panel Today I10 - Essential (primary) hypertension, I25.10 - Atherosclerotic heart disease of [place] coronary artery without angina pectoris, J44.1 - Chronic obstructive pulmonary disease with (acute) exacerbation, Z00.00 - Encounter for general adult medical examination without abnormal findings TSH reflex Free T4 Today I10 - Essential (primary) hypertension, I25.10 - Atherosclerotic heart disease of [place] coronary artery without angina pectoris, J44.1 - Chronic obstructive pulmonary disease with (acute) exacerbation, Z00.00 - Encounter for general adult medical examination without abnormal findings
== END 2024-12-12 09:07 | disposition home or self-care (01) ==
LOC: HO.HMCFM 08:27
PROVIDERS: PCP Internal Medicine; Visit Provider Internal Medicine
DX: Z00.00 Encounter for general adult medical examination without abnormal findings (principal); I25.10 Atherosclerotic heart disease of native coronary artery without angina pectoris; J44.1 Chronic obstructive pulmonary disease with (acute) exacerbation; I10 Essential (primary) hypertension

== ENCOUNTER 2024-12-12 09:11 | Outpatient (REF) | payer OTHER, SELFPAY ==
[2024-12-12 11:01] LABS: MANUAL DIFF FLAG NO
[2024-12-12 11:06] LABS: Basophils Percent Auto 0.4 % (0-2); Eosinophils Absolute Auto 0.2 X10*3/uL (0.0-0.4); Eosinophils Percent Auto 2.5 % (0-4); Hematocrit 47.3 % (37.0-47.0); Hemoglobin 15.6 g/dl (12.0-16.0); Imm Gran Abs Auto 0.02 X10*3/uL (0.00-0.03); Imm Gran Pct Auto 0.2 % (0.0-0.4); Lymphocytes Absolute Auto 2.4 X10*3/uL (1.2-4.9); Lymphocytes Percent Auto 27.7 % (20-40); Mean Corpuscular Hemoglobin 30.5 pg (27.0-33.0); Mean Corpuscular Volume 92.6 fL (80.0-98.0); Mean Platelet Volume 10.3 fL (9.4-12.3); Monocytes Absolute Auto 0.5 X10*3/uL (0.1-1.2); Neutrophils Absolute Auto 5.4 x10*3/uL (2.0-8.3); Neutrophils Percent Auto 63.2 % (45-73); Platelet Count 202 X10*3/uL (160-400); Red Blood Count 5.11 X10*6/uL (4.20-5.50); Red Cell Distribution Width 14.6 % (11.0-16.0); White Blood Count 8.5 X10*3/uL (4.8-10.8)
[2024-12-12 11:18] LABS: Estimated Average Glucose 126 mg/dL; Hemoglobin A1C 173.8777 umol/L; Total Hemoglobin (HGBA1C) 4172.0923 umol/L
[2024-12-12 11:31] LABS: Rheumatoid Factor < 13.0 IU/mL (<15.0)
[2024-12-12 11:42] LABS: Alanine Aminotransferase 16 U/L (0-31); Albumin Level 4.1 g/dL (3.5-5.0); Alkaline Phosphatase 67 U/L (39-117); Anion Gap 12 (12-20); Aspartate Amino Transferase 21 U/L (5-31); Bilirubin Total 0.6 mg/dL (0.0-1.0); Blood Urea Nitrogen 20 mg/dL (9-16); Calcium 9.4 mg/dL (8.4-10.2); Carbon Dioxide 25 mmol/L (22-29); Chloride 108 mmol/L (96-108); Cholesterol 162 mg/dL (<200); Estimated Glomerular Filt Rate > 60; Glucose Random 108 mg/dL (60-115); HDL Cholesterol 49 mg/dL (>40); LDL Cholesterol Calculated 98 mg/dL (<100); Sodium 141 mmol/L (135-145); TSH reflex Free T4 1.31 uIU/mL (0.32-4.0); Total Protein 6.7 g/dL (6.5-8.0); Triglycerides 75 mg/dL (<150)
== END 2024-12-12 09:12 | disposition home or self-care (01) ==
LOC: HO.WFDLDS 09:11
PROVIDERS: Visit Provider Internal Medicine
DX: Z00.00 Encounter for general adult medical examination without abnormal findings (principal); I25.10 Atherosclerotic heart disease of native coronary artery without angina pectoris; J44.1 Chronic obstructive pulmonary disease with (acute) exacerbation; I10 Essential (primary) hypertension; G89.28 Other chronic postprocedural pain; M25.50 Pain in unspecified joint; Z13.1 Encounter for screening for diabetes mellitus
CPT/HCPCS: 36415; 80053; 80061; 83036; 84443; 85025; 86431; 99396

== ENCOUNTER 2025-03-19 15:21 | Outpatient (AMB) | payer OTHER, SELFPAY ==
--- NOTE | 2025-03-19 15:13 | MHC.PC.OV ---
Intake Visit Reasons: Follow up Allergies sulfamethoxazole (From Bactrim) Allergy (Severe, Verified 11/14/24 16:16) Hives trimethoprim (From Bactrim) Allergy (Severe, Verified 11/14/24 16:16) Hives Tobacco use date assessed: 12/12/24 Dental Screening Dental Screen Date: 05/22/24 HPI HPI Comments History of Present Illness Details 59 year old female with a past medical history of sCHF, CAD s/p PCI 2017, Medtronic AICD/pacemaker, hypertension, hld, tobacco use disorder, emphysema, diverticulitis, chronic neck pain presenting for follow up (telehealth) CV: On coreg, entresto, lipitor, ASA. Follows with cardiology, Dr Ramesh. She follows regularly. Denies chest pain, dizziness, increase LE edema. Prediabetes-A1C ordered today Chronic pain: On chronic opioid therapy for neck pain-Percocet 10mg QID qt 11 COPD: On singulair and claritin for allergies, rescue inhaler. LDCT UTD. Patient has had increased allergy/sinus symptoms for the past 3 weeks GI: Frequent diverticulitis. stable at present Prevously on depo shots. Feels that she has been having menopausal symptoms after stopping. increased joint pain, some fatigue. Colonoscopy UTD-2021-5 years Mammo 01/2025-repeat diagnostic right and u/s recommended for six months ROS see HPI PHYSICAL EXAM: GENERAL: Alert and oriented x 3. NAD EYES: EOMI. Anicteric. HENT: Moist mucous membranes. No scleral icterus. No cervical lymphadenopathy. LUNGS: Clear to auscultation bilaterally. CARDIOVASCULAR: Regular rate and rhythm. No murmur. No JVD. ABDOMEN: Soft, non-tender +bs EXTREMITIES: No edema. Non-tender. SKIN: No rashes or lesions. Warm. NEUROLOGIC: No focal neurological deficits. CN II-XII grossly intact PSYCHIATRIC: Cooperative. Appropriate mood and affect [facility] Medical History Defibrillator discharge History of mammogram Osteoarthritis Hypertension Emphysema/COPD COPD (chronic obstructive pulmonary disease) CAD (coronary artery disease) Anxiety Surgical History History of tonsillectomy and adenoidectomy History of heart artery stent History of colonoscopy History of endoscopy Family History Mother Diabetes Heart disease Myocardial infarct Osteoporosis Skin cancer Father Malignant lymphoma, Hodgkin's type Social History Household Members: Spouse and Children Housing: House Are you a primary career services director to a significant other at home: No Do you presently have visiting nurse or other home services: No 75 years or older and lives alone: No Alcohol intake: current Alcohol intake frequency: holidays/special occasions only Patient Tobacco Use Status: Current everyday Tobacco user Tobacco use type: Cigarette Cigarette Packs Per Day: 0.5 Cigarettes Per Day: 15 Years Smoked: 30 e-Cigarette/Vaping Use: Never Used service: No Current occupational status: employed 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 Current occupational exposures/hazards: No Cognitive needs: No Hearing needs: No Vision needs: No Questionnaire Thrive Questionnaire Date Thrive assessed: 11/02/24 I am a: Patient What is your living situation today?: I have a steady place to live Within the past 12 months, did the food you bought not last and you didn't have the money to get more?: Never true Within the past 12 months, did you worry whether your food would run out before you got money to buy more?: Never true Do you have trouble paying for medicines?: No Do you have trouble getting transportation to medical appointments?: No Do you have trouble paying your heating and electricity bill?: No Do you have trouble taking care of your child, family member or friend?: No Do you have trouble with day-to-day activities such as bathing, preparing meals, shopping, managing finances, etc.?: No Are you currently unemployed and looking for a job?: No Are you interested in more education?: No Please select the resources that you would like help with: None Currently or been in a relationship where the following occur: No concerns reported THRIVE Score: 0 TJ-7 AMB Questionnaire TJ-7 Date TJ - 7 assessed: 11/03/24 Source: Developed by Drs. Marito Galindo, Alice Cr, Dante Ojeda and colleagues, with an educational jill from [employer]. Physical exam (Primary Care) Tobacco/Smoking Status: Tobacco use Status Tobacco use date assessed 12/12/24 12/12/24 08:45 Patient Tobacco Use Status Current everyday Tobacco 12/12/24 08:40 Tobacco use type Cigarette 12/12/24 08:40 e-Cigarette/Vaping Use Never Used 12/12/24 08:40 Thrive Assessment: Date of Thrive Assessment Date Thrive assessed 11/02/24 12/12/24 08:40 Currently or been in a relationship where the following occur: No concerns reported Telehealth Telehealth Telehealth Platform: [facility] Location of provider rendering services: practice address Location of patient: address on file Patient Identification confirmed using: Name, : Yes Telehealth method: voice only Patient verbally consented to treatment: Yes Patient verbally consented to billing insurance company: Yes Patient informed of any privacy concerns related to visit: Yes Minutes spent on Phone/Video with Pt.: 23 Coding Level of Care Code Est Pt Level 3 (76661) Diagnoses Coronary artery disease involving [place] coronary artery of [place] heart without angina pectoris I25.10 Coronary Disease-Associated Artery/Lesion type: [place] artery [place] vs. transplanted heart: [place] heart Associated angina: without angina Primary hypertension I10 Hypertension type: primary hypertension Subacute maxillary sinusitis J01.00 Sinusitis location: maxillary Chronicity: subacute Chronic obstructive pulmonary disease with acute exacerbation J44.1 COPD type: COPD with acute exacerbation Other chronic postprocedural pain G89.28 Chronic pain type: other chronic postprocedural pain Assessment & Plan Assessment & Plan (1) CAD (coronary artery disease): Code(s): I25.10 - Atherosclerotic heart disease of [place] coronary artery without angina pectoris Category: Medical Qualifiers: Coronary Disease-Associated Artery/Lesion type: [place] artery [place] vs. transplanted heart: [place] heart Associated angina: without angina Qualified Code(s): I25.10 - Atherosclerotic heart disease of [place] coronary artery without angina pectoris (2) Hypertension: Code(s): I10 - Essential (primary) hypertension Category: Medical Qualifiers: Hypertension type: primary hypertension Qualified Code(s): I10 - Essential (primary) hypertension (3) Sinusitis: Code(s): J32.9 - Chronic sinusitis, unspecified Category: Medical Qualifiers: Sinusitis location: maxillary Chronicity: subacute Qualified Code(s): J01.00 - Acute maxillary sinusitis, unspecified (4) COPD (chronic obstructive pulmonary disease): Code(s): J44.9 - Chronic obstructive pulmonary disease, unspecified Category: Medical Qualifiers: COPD type: COPD with acute exacerbation Qualified Code(s): J44.1 - Chronic obstructive pulmonary disease with (acute) exacerbation (5) Chronic pain: Code(s): G89.29 - Other chronic pain Category: Medical Qualifiers: Chronic pain type: other chronic postprocedural pain Qualified Code(s): G89.28 - Other chronic postprocedural pain Plan Chronic pain is stable on current medications sinusitis-she has a zpak at home she will start Diverticulosis without diverticulitis-stable at present CHF/CAD without angina or increased dyspnea. continue current medications Medications: New azithromycin For 250 mg dose pack: take 500 mg today (day 1), then 250 mg for 4 days (days 2-5) PO 6 tabs 0RF Refilled atorvastatin 40 mg PO BEDTIME 90 tabs 3RF sacubitril-valsartan 97-103 mg (Entresto) 1 tab PO BID 180 tabs 3RF
== END 2025-03-19 16:05 | disposition home or self-care (01) ==
LOC: HO.HMCFM 15:21
PROVIDERS: PCP Internal Medicine; Visit Provider Internal Medicine
DX: I25.10 Atherosclerotic heart disease of native coronary artery without angina pectoris (principal); I10 Essential (primary) hypertension; J01.00 Acute maxillary sinusitis, unspecified; J44.1 Chronic obstructive pulmonary disease with (acute) exacerbation; G89.28 Other chronic postprocedural pain

== ENCOUNTER → 2025-03-19 15:21 | Outpatient (BNVA) | payer OTHER, SELFPAY | PROVIDERS: PCP Internal Medicine; Visit Provider Internal Medicine | DX: I25.10 Atherosclerotic heart disease of native coronary artery without angina pectoris (principal); I11.0 Hypertensive heart disease with heart failure; I50.20 Unspecified systolic (congestive) heart failure; J01.00 Acute maxillary sinusitis, unspecified; J44.1 Chronic obstructive pulmonary disease with (acute) exacerbation; G89.28 Other chronic postprocedural pain; K57.90 Diverticulosis of intestine, part unspecified, without perforation or abscess without bleeding; Z79.82 Long term (current) use of aspirin; Z79.899 Other long term (current) drug therapy; Z95.810 Presence of automatic (implantable) cardiac defibrillator | CPT/HCPCS: 99212 ==

== ENCOUNTER 2025-06-22 08:56 | Outpatient (REF) | payer OTHER, SELFPAY ==
[2025-06-22 12:30] LABS: Alanine Aminotransferase 22 U/L (0-31); Albumin Level 4.0 g/dL (3.5-5.0); Alkaline Phosphatase 60 U/L (39-117); Anion Gap 10 (12-20); Aspartate Amino Transferase 21 U/L (5-31); Blood Urea Nitrogen 17 mg/dL (9-16); Calcium 9.1 mg/dL (8.4-10.2); Carbon Dioxide 26 mmol/L (22-29); Chloride 110 mmol/L (96-108); Cholesterol 160 mg/dL (<200); Estimated Glomerular Filt Rate > 60; HDL Cholesterol 52 mg/dL (>40); Potassium 3.8 mmol/L (3.3-5.1); Sodium 142 mmol/L (135-145); Total Protein 6.4 g/dL (6.5-8.0); Triglycerides 66 mg/dL (<150)
== END 2025-06-22 08:57 | disposition home or self-care (01) ==
LOC: HO.WFDLDS 08:56
PROVIDERS: PCP Internal Medicine; Visit Provider Internal Medicine
DX: I10 Essential (primary) hypertension (principal); I25.10 Atherosclerotic heart disease of native coronary artery without angina pectoris; J44.1 Chronic obstructive pulmonary disease with (acute) exacerbation; E78.5 Hyperlipidemia, unspecified; J43.9 Emphysema, unspecified; M54.2 Cervicalgia; R73.03 Prediabetes; M15.9 Polyosteoarthritis, unspecified; G89.28 Other chronic postprocedural pain; Z23 Encounter for immunization; Z95.0 Presence of cardiac pacemaker
CPT/HCPCS: 36415; 80053; 80061; 83036; 90471; 90656; 99212

== ENCOUNTER 2025-06-22 08:56 | Outpatient (AMB) | payer OTHER, SELFPAY ==
--- NOTE | 2025-06-22 08:59 | MHC.PC.OV ---
Vital Signs 06/22/25 09:05 Height 5 ft 6 in Weight 212 lb BMI 34.2 BP 118/78 Blood Pressure Location Rt brachial Position Sitting Respiration 16 Pulse 67 Pulse Source Pulse Oximeter Pulse Oximetry (%) 93 Oxygen Delivery Method Room Air Intake Visit Reasons: follow up Intake Note: follow up Trace Evidence Technician Required: No Allergies Seasonal Allergies Allergy (Severe, Verified 06/22/25 09:03) Wheezing sulfamethoxazole (From Bactrim) Allergy (Severe, Verified 11/14/24 16:16) Hives trimethoprim (From Bactrim) Allergy (Severe, Verified 11/14/24 16:16) Hives Tobacco use date assessed: 06/22/25 Dental Screening Dental Screen Date: 06/22/25 Did you have a dental visit in the last 12 months?: No Did you have a dental problem in the last 6 months where you did not have access to dental care?: No Was dental information given to patient?: Patient has dentist HPI HPI Comments History of Present Illness Details 59 year old female with a past medical history of sCHF, CAD s/p PCI 2017, [employer] AICD/pacemaker, hypertension, hld, tobacco use disorder, emphysema, diverticulitis, chronic neck pain presenting for follow up CV: On coreg, entresto, lipitor, ASA. Follows with cardiology, Dr Ramesh. She follows regularly. Blood pressure is well controlled Denies chest pain, dizziness, increase LE edema. Prediabetes-A1C ordered today Chronic pain: On chronic opioid therapy for neck pain-Percocet 10mg QID qt 11 COPD: On singulair and claritin for allergies, rescue inhaler. LDCT UTD. Patient has had increased allergy/sinus symptoms for the past month. She has intermittent wheezing GI: Frequent diverticulitis. stable at present Prevously on depo shots. Feels that she has been having menopausal symptoms after stopping. increased joint pain, some fatigue. Colonoscopy UTD-2021-5 years Mammo 01/2025-repeat diagnostic right and u/s recommended for six months-scheduled Flu shot today ROS see HPI PHYSICAL EXAM: GENERAL: Alert and oriented x 3. NAD EYES: EOMI. Anicteric. HENT: Moist mucous membranes. No scleral icterus. No cervical lymphadenopathy. LUNGS: Clear to auscultation bilaterally. CARDIOVASCULAR: Regular rate and rhythm. No murmur. No JVD. ABDOMEN: Soft, non-tender +bs EXTREMITIES: No edema. Non-tender. SKIN: No rashes or lesions. Warm. NEUROLOGIC: No focal neurological deficits. CN II-XII grossly intact PSYCHIATRIC: Cooperative. Appropriate mood and affect [facility] Medical History (Updated 06/22/25 @ 09:27 by Kecia Fay MD) Defibrillator discharge History of mammogram Osteoarthritis Hypertension Emphysema/COPD COPD (chronic obstructive pulmonary disease) CAD (coronary artery disease) Anxiety Surgical History History of tonsillectomy and adenoidectomy History of heart artery stent History of colonoscopy History of endoscopy Family History Mother Diabetes Heart disease Myocardial infarct Osteoporosis Skin cancer Father Malignant lymphoma, Hodgkin's type Social History Household Members: Spouse and Children Housing: House Are you a primary ocular care aide to a significant other at home: No Do you presently have visiting nurse or other home services: No 75 years or older and lives alone: No Alcohol intake: current Alcohol intake frequency: holidays/special occasions only Patient Tobacco Use Status: Current everyday Tobacco user Tobacco use type: Cigarette Cigarette Packs Per Day: 0.5 Cigarettes Per Day: 15 Years Smoked: 30 Packs Per Year: 15 Packs per year/per ci.50 e-Cigarette/Vaping Use: Never Used Use of substances other than those prescribed or required for medical reasons: No service: No Current occupational status: employed 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 Current occupational exposures/hazards: No Cognitive needs: No Hearing needs: No Vision needs: No Questionnaire Thrive Questionnaire Date Thrive assessed: 11/02/24 I am a: Patient What is your living situation today?: I have a steady place to live Within the past 12 months, did the food you bought not last and you didn't have the money to get more?: Never true Within the past 12 months, did you worry whether your food would run out before you got money to buy more?: Never true Do you have trouble paying for medicines?: No Do you have trouble getting transportation to medical appointments?: No Do you have trouble paying your heating and electricity bill?: No Do you have trouble taking care of your child, family member or friend?: No Do you have trouble with day-to-day activities such as bathing, preparing meals, shopping, managing finances, etc.?: No Are you currently unemployed and looking for a job?: No Are you interested in more education?: No Please select the resources that you would like help with: None Currently or been in a relationship where the following occur: No concerns reported THRIVE Score: 0 TJ-7 AMB Questionnaire TJ-7 Date TJ - 7 assessed: 11/03/24 Source: Developed by Drs. Marito Galindo, Alice Cr, Dante Ojeda and colleagues, with an educational jill from [employer]. Physical exam (Primary Care) Vital Signs: Last Vital Signs Pulse 67 06/22/25 09:05 Resp 16 06/22/25 09:05 BP 118/78 06/22/25 09:05 Pulse Ox 93 06/22/25 09:05 Oxygen Delivery Method Room Air 06/22/25 09:05 BMI result Body Mass Index 34.2 Tobacco/Smoking Status: Tobacco use Status Tobacco use date assessed 06/22/25 06/22/25 09:08 Patient Tobacco Use Status Current everyday Tobacco 06/22/25 09:08 Tobacco use type Cigarette 06/22/25 09:08 e-Cigarette/Vaping Use Never Used 06/22/25 09:08 Thrive Assessment: Date of Thrive Assessment Date Thrive assessed 11/02/24 06/22/25 09:08 Currently or been in a relationship where the following occur: No concerns reported Coding Level of Care Code Est Pt Level 4 (00517) Complex EM visit Add On G2211 Diagnoses Primary hypertension I10 Hypertension type: primary hypertension Coronary artery disease involving [place] coronary artery of [place] heart without angina pectoris I25.10 Coronary Disease-Associated Artery/Lesion type: [place] artery [place] vs. transplanted heart: [place] heart Associated angina: without angina Primary osteoarthritis involving multiple joints M15.9 Osteoarthritis location: multiple joints Osteoarthritis type: primary Other chronic postprocedural pain G89.28 Chronic pain type: other chronic postprocedural pain Chronic obstructive pulmonary disease with acute exacerbation J44.1 COPD type: COPD with acute exacerbation Assessment & Plan Assessment & Plan (1) Hypertension: Code(s): I10 - Essential (primary) hypertension Category: Medical Qualifiers: Hypertension type: primary hypertension Qualified Code(s): I10 - Essential (primary) hypertension (2) CAD (coronary artery disease): Code(s): I25.10 - Atherosclerotic heart disease of [place] coronary artery without angina pectoris Category: Medical Qualifiers: Coronary Disease-Associated Artery/Lesion type: [place] artery [place] vs. transplanted heart: [place] heart Associated angina: without angina Qualified Code(s): I25.10 - Atherosclerotic heart disease of [place] coronary artery without angina pectoris (3) Osteoarthritis: Code(s): M19.90 - Unspecified osteoarthritis, unspecified site Category: Medical Qualifiers: Osteoarthritis location: multiple joints Osteoarthritis type: primary Qualified Code(s): M15.9 - Polyosteoarthritis, unspecified (4) Chronic pain: Code(s): G89.29 - Other chronic pain Category: Medical Qualifiers: Chronic pain type: other chronic postprocedural pain Qualified Code(s): G89.28 - Other chronic postprocedural pain (5) COPD (chronic obstructive pulmonary disease): Code(s): J44.9 - Chronic obstructive pulmonary disease, unspecified Category: Medical Qualifiers: COPD type: COPD with acute exacerbation Qualified Code(s): J44.1 - Chronic obstructive pulmonary disease with (acute) exacerbation Plan 59 year old female for follow up CAD-Blood pressure well controlled prediabetes-interval weight gain. Check A1C. Efforts toward weight loss COPD with exacerbation-zpak, prednisone sent Mammo is up to date Orders: Orders Comprehensive Met. Panel Today I10 - Essential (primary) hypertension, I25.10 - Atherosclerotic heart disease of [place] coronary artery without angina pectoris, J44.1 - Chronic obstructive pulmonary disease with (acute) exacerbation Hemoglobin A1c Today I10 - Essential (primary) hypertension, I25.10 - Atherosclerotic heart disease of [place] coronary artery without angina pectoris, J44.1 - Chronic obstructive pulmonary disease with (acute) exacerbation Lipid Panel Today I10 - Essential (primary) hypertension, I25.10 - Atherosclerotic heart disease of [place] coronary artery without angina pectoris, J44.1 - Chronic obstructive pulmonary disease with (acute) exacerbation Medications: New azithromycin For 250 mg dose pack: take 500 mg today (day 1), then 250 mg for 4 days (days 2-5) PO 6 tabs 0RF prednisone 40 mg (2 x 20 mg) PO DAILY 10 tabs 0RF
[2025-06-22 09:05] VITALS: BP 118/78; PULSE 67; RESP 16; O2SAT 93; BMI 34.2
== END 2025-06-22 09:30 | disposition home or self-care (01) ==
LOC: HO.HMCFM 08:58
PROVIDERS: PCP Internal Medicine; Visit Provider Internal Medicine
DX: J44.1 Chronic obstructive pulmonary disease with (acute) exacerbation (principal); I10 Essential (primary) hypertension; I25.10 Atherosclerotic heart disease of native coronary artery without angina pectoris; M15.9 Polyosteoarthritis, unspecified; G89.28 Other chronic postprocedural pain; Z23 Encounter for immunization